=== PATIENT | male | born 1990 | race Two or more races ===

== ENCOUNTER 2021-03-23 13:30 | Emergency (ER) | payer MEDICAID | END 2021-03-23 16:04 | disposition left against medical advice (07) | LOC: EMS 13:30 | DX: M79.89 Other specified soft tissue disorders (principal); Z53.21 Procedure and treatment not carried out due to patient leaving prior to being seen by health care provider ==

== ENCOUNTER 2022-06-27 08:39 | Emergency (ER) | payer MEDICAID ==
[~2022-06-27] VITALS: Ht 167.6 cm; Wt 100.9 kg
[2022-06-27] MEDS ORDERED: GABA-1216 PO (09:04)
[2022-06-27 11:56] VITALS: BP 142/91
[2022-06-27] MEDS ORDERED: ACET-66 PO (12:46)
[2022-06-27] MEDS ORDERED: IBUP-1492 PO (12:46)
== END 2022-06-27 12:56 | disposition home or self-care (01) ==
LOC: EMS 08:53
DX: S62.300A Unspecified fracture of second metacarpal bone, right hand, initial encounter for closed fracture (principal); F17.210 Nicotine dependence, cigarettes, uncomplicated; Y93.89 Activity, other specified
CPT/HCPCS: 99283